=== PATIENT | female | born 1940 | race Caucasian/White ===

== ENCOUNTER 2017-02-26 06:50 | Observation (INO) | payer MEDICARE, OTHER ==
[~2017-02-26] VITALS: Ht 157.5 cm; Wt 88.5 kg
[2017-02-26] MEDS ORDERED: FENTANYL CITRATE 100 MCG/2 ML AMPUL ONE (07:40)
[2017-02-26] MEDS ORDERED: MIDAZOLAM HCL 2 MG/2 ML VIAL ONE (07:40)
[2017-02-26] MEDS ORDERED: ROCURONIUM BROMIDE 50 MG/5 ML VIAL ONE (07:41)
[2017-02-26] MEDS ORDERED: SUCCINYLCHOLINE CHLORIDE 200 MG/10 ML VIAL ONE (07:41)
[2017-02-26] MEDS ORDERED: LIDOCAINE-MPF 2% 5 ML VIAL MC ONE (08:00)
[2017-02-26] MEDS ORDERED: NEOSTIGMINE METHYLSULFATE 10 MG/10 ML VIAL IV ONE (08:00)
[2017-02-26] MEDS ORDERED: PROPOFOL 200 MG/20 ML BOTTLE IV ONE (08:00)
[2017-02-26] MEDS ORDERED: CEFAZOLIN 1 G VIAL MC ONE (08:00)
[2017-02-26] MEDS ORDERED: ONDANSETRON 4 MG/2 ML VIAL IV ONE (08:00)
[2017-02-26] MEDS ORDERED: GLYCOPYRROLATE 0.2 MG/ML VIAL MC ONE (08:00)
[2017-02-26] MEDS ORDERED: DESFLURANE ANESTHESIA GAS 240 ML BOTTLE IH ONE (08:00)
[2017-02-26] MEDS ORDERED: ETOMIDATE 20 MG/10 ML VIAL MC ONE (08:00)
[2017-02-26] MEDS ORDERED: DEXAMETHASONE SOD PHOSPHATE 4 MG INJ IV ONE (08:00)
[2017-02-26] MEDS ORDERED: IV LACTATED RINGERS SOLUTION 1,000 ML BAG MC ONE (08:00)
[2017-02-26] MEDS ORDERED: BUPIVACAINE 0.25% 30 ML VIAL ONE (08:54)
[2017-02-26] MEDS ORDERED: MORPHINE SULFATE PF 10 MG/10 ML AMPUL IV ONE (08:54)
[2017-02-26] MEDS ORDERED: TRIAMCINOLONE ACETONIDE 40 MG/1 ML VIAL ONE (09:06)
[2017-02-26] MEDS ORDERED: HYDROMORPHONE 1 MG/1 ML DISP.SYRIN ONE (09:42)
[2017-02-26] MEDS ORDERED: ONDANSETRON 4 MG/2 ML VIAL ONE (09:43)
[2017-02-26 11:17] VITALS: BP 116/61
[2017-02-26] MEDS ORDERED: PARO20TA6 PO (11:34)
[2017-02-26] MEDS ORDERED: DONE5TAB3 PO (11:34)
[2017-02-26] MEDS ORDERED: [UNRECOGNIZED DRUG - OTHER] (11:34)
[2017-02-26] MEDS ORDERED: MEGE400O PO (11:34)
[2017-02-26] MEDS ORDERED: WARF2TAB57 PO (11:34)
[2017-02-26] MEDS ORDERED: LOSA50TA3 PO (11:34)
[2017-02-26] MEDS ORDERED: FAMO-132 PO (11:34)
[2017-02-26] MEDS ORDERED: HYDR-551 PO (11:34)
[2017-02-26] MEDS ORDERED: MORPHINE SULFATE 2 MG/1 ML DISP.SYRIN IV PRN (13:30)
[2017-02-26 16:00] VITALS: BP 107/69
[2017-02-26 20:00] VITALS: BP 99/68
[2017-02-26] MEDS ORDERED: HYDROCODONE/APAP 7.5-325MG TABLET PO PRN (20:00)
[2017-02-26] MEDS ORDERED: ONDANSETRON 4 MG/2 ML VIAL IV PRN (20:30)
[2017-02-26] MEDS ORDERED: HYDROCODONE/APAP 5-325MG TABLET PO PRN (20:30)
[2017-02-26] MEDS ORDERED: ACETAMINOPHEN 325 MG TABLET PO PRN (20:30)
[2017-02-26] MEDS ORDERED: MAGNESIUM HYDROXIDE 30 ML LIQUID UDC PO PRN (20:30)
[2017-02-26] MEDS ORDERED: ZOLPIDEM 5 MG TABLET PO PRN (20:30)
[2017-02-26] MEDS ORDERED: Z GUARD REMEDY PASTE 57 GM TUBE TOP PRN (20:30)
[2017-02-27 05:00] VITALS: BP 118/75
[2017-02-27] MEDS ORDERED: MEGESTROL ACETATE 20 MG TABLET PO SCH (09:00)
[2017-02-27] MEDS ORDERED: DONEPEZIL 5 MG TABLET PO SCH (09:00)
[2017-02-27] MEDS ORDERED: FAMOTIDINE 20 MG TABLET PO SCH (09:00)
[2017-02-27] MEDS ORDERED: PAROXETINE HCL 20 MG TABLET PO SCH (09:00)
[2017-02-27] MEDS ORDERED: LOSARTAN POTASSIUM 50 MG TABLET PO SCH (09:00)
[2017-02-27 11:08] VITALS: BP 107/66
[2017-02-27 15:21] VITALS: BP 110/72
[2017-02-27] MEDS ORDERED: WARFARIN SODIUM 2 MG TABLET PO SCH (17:00)
== END 2017-02-27 15:45 ==
LOC: DS 06:50 → MED 10:36
PROVIDERS: ADMIT Orthopaedic Surgery; ATTEND Family Medicine
PROC: 0SBC4ZZ Excision of Right Knee Joint, Percutaneous Endoscopic Approach (ICD-10-PCS; principal; 2017-02-26 08:00)
DX: S83.271A Complex tear of lateral meniscus, current injury, right knee, initial encounter (principal); X58.XXXA Exposure to other specified factors, initial encounter; Y92.89 Other specified places as the place of occurrence of the external cause; E66.01 Morbid (severe) obesity due to excess calories; M17.11 Unilateral primary osteoarthritis, right knee; M65.861 Other synovitis and tenosynovitis, right lower leg; M22.41 Chondromalacia patellae, right knee; Z68.35 Body mass index [BMI] 35.0-35.9, adult; I48.0 Paroxysmal atrial fibrillation; Z79.01 Long term (current) use of anticoagulants; F03.90 Unspecified dementia, unspecified severity, without behavioral disturbance, psychotic disturbance, mood disturbance, and anxiety; E78.5 Hyperlipidemia, unspecified; K21.9 Gastro-esophageal reflux disease without esophagitis; Z79.899 Other long term (current) drug therapy; I10 Essential (primary) hypertension; F32.9 Major depressive disorder, single episode, unspecified
CPT/HCPCS: 36415; 71010; 85610; 97001; 97116; 97530; A4663; G0378; J0330; J0690; J1100; J1170; J2250; J2270; J2274; J2405; J2710; J3010; J3301; J3490; J7120

== ENCOUNTER 2017-02-27 16:01 | Inpatient (IN) | payer MEDICARE, OTHER ==
[2017-02-27 07:07] LABS: BASOPHILS % (AUTO) 0.1 % (0.0-2.0); EOSINOPHILS # (AUTO) 0.1 K/uL (0.0-0.7); EOSINOPHILS % (AUTO) 0.9 % (0.0-7.0); HEMATOCRIT 36.8 % (37-47); HEMOGLOBIN 12.3 G/DL (12.0-16.0); LYMPHOCYTES # (AUTO) 1.4 K/UL (0.8-4.8); LYMPHOCYTES % (AUTO) 16.6 % (20.5-51.5); MEAN CORPUSCULAR HEMOGLOBIN 32.6 UUG (27.0-31.0); MEAN CORPUSCULAR HGB CONC 34 g/dL (32.0-37.0); MEAN CORPUSCULAR VOLUME 97.4 FL (81.0-99.0); MONOCYTES # (AUTO) 0.4 K/UL (0.1-1.30); MONOCYTES % (AUTO) 4.6 % (0.0-11.0); NEUTROPHILS # (AUTO) 6.6 K/UL (1.8-8.9); NEUTROPHILS % (AUTO) 77.8 % (38.5-71.5); PLATELET COUNT (AUTO) 194 K/UL (150-450); RED BLOOD CELL COUNT(AUTO) 3.77 MIL/UL (4.2-5.4); WHITE BLOOD COUNT (AUTO) 8.5 K/UL (4.0-11.2)
[2017-02-27 07:47] LABS: MAGNESIUM 2.2 mg/dL (1.8-2.4); PHOSPHOROUS 3.2 mg/dL (2.5-4.9); POTASSIUM 3.9 mmol/L (3.5-5.1)
[2017-02-27 09:05] LABS: BAND % (MANUAL) 4 % (0-10); LYMPHOCYTES % (MANUAL) 20 % (20-40); MONOCYTES % (MANUAL) 3 % (2-10); NEUTROPHILS % (MANUAL) 73 % (42-75)
[~2017-02-27 16:01] MED LIST: ACETAMINOPHEN 325 MG TABLET PO PRN; DONE5TAB3 PO; DONEPEZIL 5 MG TABLET PO SCH; FAMO-132 PO; FAMOTIDINE 20 MG TABLET PO SCH; HYDR-551 PO; HYDROCODONE/APAP 5-325MG TABLET PO PRN; HYDROCODONE/APAP 7.5-325MG TABLET PO SCH; LOSA50TA3 PO; LOSARTAN POTASSIUM 50 MG TABLET PO SCH; MAGNESIUM HYDROXIDE 30 ML LIQUID UDC PO PRN; MEGE400O PO; ONDANSETRON 4 MG/2 ML VIAL IV PRN; PARO20TA6 PO; PAROXETINE HCL 20 MG TABLET PO SCH; WARF2TAB57 PO; Z GUARD REMEDY PASTE 57 GM TUBE TOP PRN; ZOLPIDEM 5 MG TABLET PO PRN; [UNRECOGNIZED DRUG - OTHER]
[2017-02-27] MEDS ORDERED: HYDROCODONE/APAP 5-325MG TABLET PO PRN (16:45)
[2017-02-27] MEDS ORDERED: Z GUARD REMEDY PASTE 57 GM TUBE TOP PRN (16:45)
[2017-02-27] MEDS ORDERED: ONDANSETRON 4 MG/2 ML VIAL IV PRN (16:45)
--- NOTE | 2017-02-27 17:00 | NUR ---
Admitted patient from 2nd floor Med-surg unit s/p knee surgery meniscus repair of right knee. Accompanied by hospital staff. Alert and oriented x4. No s/s of distress. No complaints of pain at this time. Oriented patient to room, staff and equipment. PT evaluation done. Informed Dr. Salazar of admission.
[2017-02-27] MEDS: WARFARIN SODIUM 2 MG TABLET PO SCH (17:57)
[2017-02-27 18:50] VITALS: BP 131/80
--- NOTE | 2017-02-27 19:30 | NUR ---
PT ALERT AND ORIENTED IN BED. NO DISTRESS NOTED. NO PAIN AT THIS TIME NOTED. DRESSING ON RIGHT KNEE INTACT, ELEVATED WITH PILLOW. PEDAL PULSES FELT BILATERALLY. SAFETY MAINTAINED. CALL LIGHT WITHIN REACH. WILL CONTINUE TO MONITOR.
[2017-02-27] MEDS ORDERED: MAGNESIUM HYDROXIDE 30 ML LIQUID UDC PO PRN (21:00)
[2017-02-27] MEDS ORDERED: ZOLPIDEM 5 MG TABLET PO PRN (21:00)
[2017-02-27 22:06] VITALS: BP 143/60
--- NOTE | 2017-02-28 06:46 | NUR ---
PT ALERT AND ORIENTED IN BED. NO DISTRESS NOTED. SLEPT WELL THROUGHOUT THE NIGHT. NO BM NOTED, MOM GIVEN. DRESSING INTACT. SAFETY MAINTAINED. CALL LIGHT WITHIN REACH.
--- NOTE | 2017-02-28 07:15 | NUR ---
Patient received from table games shift manager, resting comfortably in bed. No signs of acute distress noted, respirations even and unlabored. O2 sat WNL on RA, VS WNL. No other verbalized needs at this time. Safety and fall precautions maintained, call light within reach.
[2017-02-28 08:00] VITALS: BP 132/92
[2017-02-28] MEDS: DONEPEZIL 5 MG TABLET PO SCH (09:27)
[2017-02-28] MEDS: WARFARIN SODIUM 2 MG TABLET PO SCH (09:47)
[2017-02-28] MEDS: LOSARTAN POTASSIUM 50 MG TABLET PO SCH (09:49)
[2017-02-28] MEDS: FAMOTIDINE 20 MG TABLET PO SCH (09:50)
[2017-02-28] MEDS: PAROXETINE HCL 20 MG TABLET PO SCH (09:50)
[2017-02-28] MEDS: MEGESTROL ACETATE 20 MG TABLET PO SCH (09:50)
[2017-02-28] MEDS: ACETAMINOPHEN 325 MG TABLET PO PRN (16:21)
--- NOTE | 2017-02-28 16:28 | NUR ---
patient c/o 07/20 headache. Tylenol 650 mg given, will reasses.
--- NOTE | 2017-02-28 19:30 | NUR ---
Received patient awake in bed, watching TV. No s/s of distress. Call light within reach. Will continue to monitor.
[2017-02-28 20:00] VITALS: BP 126/85
--- NOTE | 2017-03-01 07:30 | NUR ---
Patient is still asleep laying in bed. No acute distress. Denies any pain and discomfort. Ambulates to bathroom with no difficulty. Kept clean and dry. All needs attended to promptly. Call light within reach. Will continue to monitor.
--- NOTE | 2017-03-01 08:00 | NUR ---
Received patient awake, sitting on the side of her bed, alert, verbally responsive, coherent, afebrile, not in any form of acute distress. She denies any pain or discomfort at this time. Environmental safety check done. Call light placed within reach.
[2017-03-01 08:23] VITALS: BP 145/92
[2017-03-01] MEDS: PAROXETINE HCL 20 MG TABLET PO SCH (08:35)
[2017-03-01] MEDS: DONEPEZIL 5 MG TABLET PO SCH (08:35)
[2017-03-01] MEDS: FAMOTIDINE 20 MG TABLET PO SCH (08:35)
[2017-03-01] MEDS: LOSARTAN POTASSIUM 50 MG TABLET PO SCH (08:36)
[2017-03-01] MEDS: MEGESTROL ACETATE 20 MG TABLET PO SCH (08:37)
[2017-03-01] MEDS: ACETAMINOPHEN 325 MG TABLET PO PRN (14:05)
[2017-03-01] MEDS ORDERED: WARFARIN SODIUM 2 MG TABLET PO SCH (17:00)
--- NOTE | 2017-03-01 19:00 | NUR ---
Received report from ANGELI Oconnor. Received patient in bed. Alert and verbally responsive. Able to make needs known. Denies any pain and discomfort at this time. No acute distress. No SOB. Patient is on room air. Sutures on right knee are intact. Dressing change to be done on Friday 03/02 as ordered. Kept clean and dry. Environmental safety check done. All needs attended to promptly. Call light within reach. Will continue to monitor.
[2017-03-01] MEDS ORDERED: WARFARIN SODIUM 3 MG TABLET PO ONE (19:45)
[2017-03-01 20:00] VITALS: BP 132/84
--- NOTE | 2017-03-02 06:27 | NUR ---
Patient is awake and verbally responsive. Slept comfortably through out the night. Denies any pain and discomfort. No acute distress. No SOB. Patient ambulates to the restroom. Tolerated well. All needs attended to promptly. Call light within reach. Will continue to monitor.
--- NOTE | 2017-03-02 07:24 | NUR ---
Dressing changed. Sutures are intact. No swelling noted. No redness. No c/o pain. No drainage. All needs attended to promptly. Call light within reach. Will contine to monitor.
--- NOTE | 2017-03-02 07:30 | NUR ---
Received patient up in bed, awake, verbally responsive, able to make needs known, not in any form of acute distress. She denies any pain or discomfort at this time. Environmental safety check done. Call light placed within reach.
[2017-03-02] MEDS: DONEPEZIL 5 MG TABLET PO SCH (09:02)
[2017-03-02] MEDS: MEGESTROL ACETATE 20 MG TABLET PO SCH (09:02)
[2017-03-02] MEDS: FAMOTIDINE 20 MG TABLET PO SCH (09:03)
[2017-03-02] MEDS: PAROXETINE HCL 20 MG TABLET PO SCH (09:03)
[2017-03-02] MEDS: LOSARTAN POTASSIUM 50 MG TABLET PO SCH (09:03)
[2017-03-02 10:31] VITALS: BP 141/101
--- NOTE | 2017-03-02 15:14 | NUR ---
Seed Tester: SW met with patient at bedside to assess needs and provide support. Per chart, pt has a hx of dementia therefore is a poor historian, and unable to provide reliable information. She appeared confused, disoriented, and disorganized upon interview. Pt reported her family lives in [place] and has no family support. She was fixated on her bandage and had to be redirected a few times. Pt was unable to report if she has ever completed a POLST or has an ACD. GIULIANO contacted pt's "daughter" who was listed as an emergency contact, Lupe [phone] who provided collateral. Per Lupe, she is not the pt's daughter and is her "long time friend". Lupe stated that the pt's family "abandoned" her years ago, and she has helped her since. Lupe reported she does not know the pt's psychiatric hx, however she has been involved in assisting and caring for the pt. Lupe stated that to her knowledge there is no POLST or ACD, and reported that family is not involved. Per Lpue, she is assisting the pt in applying for [employer]. Pt will need need mental health resources due to hx of depression and dementia, along with further community resources to plan for a safe transition home. GIULIANO will continue to follow-up and assess for further needs.
--- NOTE | 2017-03-02 16:37 | NUR ---
Relayed PT/INR results and previous coumadin dose to Dr. Harris with order to give Coumadin 5mg today. Order carried out.
[2017-03-02] MEDS ORDERED: WARFARIN SODIUM 5 MG TABLET PO ONE (17:00)
[2017-03-02] MEDS: COUMADIN VARIABLE DOSE REMINDE XX SCH (17:00)
[2017-03-02] MEDS ORDERED: WARFARIN SODIUM 3 MG TABLET PO ONE (17:00)
[2017-03-02 20:00] VITALS: BP 109/57
--- NOTE | 2017-03-03 05:18 | NUR ---
Patient alert and oriented verbally able to let needs known. Slept well throughout the night. Had no complains of pain or discomfort, no signs of respiratory distress noted. Patient has call light within reach, will continue to monitor.
--- NOTE | 2017-03-03 07:30 | NUR ---
RECEIVED PATIENT IN BED AWAKE ALERT AND ORIENTED,DENIES PAIN OR DISCOMFORTS AT THIS TIME.CALL LIGHT IS WITHIN EASY REACH AT THIS TIME.MADE COMFORTABLE AND WILL CONTINUE TO OBSERVE.
[2017-03-03 08:00] VITALS: BP 130/98
[2017-03-03] MEDS: PAROXETINE HCL 20 MG TABLET PO SCH (09:34)
[2017-03-03] MEDS: LOSARTAN POTASSIUM 50 MG TABLET PO SCH (09:34)
[2017-03-03] MEDS: DONEPEZIL 5 MG TABLET PO SCH (09:34)
[2017-03-03] MEDS: MEGESTROL ACETATE 20 MG TABLET PO SCH (09:34)
[2017-03-03] MEDS: FAMOTIDINE 20 MG TABLET PO SCH (09:34)
--- NOTE | 2017-03-03 13:57 | NUR ---
IDT MEETING 03/03/17
--- NOTE | 2017-03-03 15:17 | NUR ---
PATIENT SEEN AND EXAMINED BY DR OMER SECURITY NURSE WITH NEW ORDERS AND NOTED.
[2017-03-03 16:11] VITALS: BP 144/109
[2017-03-03 16:30] VITALS: BP 140/93
[2017-03-03] MEDS: COUMADIN VARIABLE DOSE REMINDE XX SCH (17:00)
[2017-03-03] MEDS: RIVAROXABAN 10 MG TABLET PO SCH (17:40)
--- NOTE | 2017-03-03 18:15 | NUR ---
XARELTO GIVEN ORDERED WITH NO ADVERSE OR ALLERGIC REACTIONS AT THIS TIME.
[2017-03-03 19:58] VITALS: BP 142/90
--- NOTE | 2017-03-03 20:33 | NUR ---
Patient alert me during 2000 rounds that as she was ambulating to the restroom she felt something pop on her R knee and it suddenly swelled around the suture site. Patient is S/P R knee arthroplasty, site was assessed and it was noted with some swelling around sutures with slight warmness. Dr Mistry was telephone collector for the epic group and she was notified. She stated to have PT evaluate the knee tomorrow. Patient is alert and oriented and informed on what was recommended by the doctor. Knee will be continued to monitor throughout the night.
--- NOTE | 2017-03-04 05:29 | NUR ---
Patient alert and oriented and verbally able to let needs known, patient slept well throughout the night. She had no complains of pain or discomfort, no signs of respiratory distress. Patient has call light within reach, all needs attended.
--- NOTE | 2017-03-04 07:05 | NUR ---
Patient received from communications instructor, resting comfortably in bed. No signs of acute distress noted, respirations even and unlabored. VS WNL, no complaints of pain, no other verbalized needs at this time. Safety precautions and fall precautions maintained, call light within reach.
[2017-03-04 08:00] VITALS: BP 136/105
[2017-03-04] MEDS: DONEPEZIL 5 MG TABLET PO SCH (08:49)
[2017-03-04] MEDS: LOSARTAN POTASSIUM 50 MG TABLET PO SCH (08:50)
[2017-03-04] MEDS: PAROXETINE HCL 20 MG TABLET PO SCH (08:50)
[2017-03-04] MEDS: FAMOTIDINE 20 MG TABLET PO SCH (08:50)
[2017-03-04] MEDS: MEGESTROL ACETATE 20 MG TABLET PO SCH (09:53)
--- NOTE | 2017-03-04 14:01 | NUR ---
PATIENT IS COMMING BACK FROM PT VIA WHEEL CHAIR.
--- NOTE | 2017-03-04 15:28 | NUR ---
PATIENT IS RESTING IN BED AT THIS TIME.
[2017-03-04] MEDS: RIVAROXABAN 10 MG TABLET PO SCH (17:07)
--- NOTE | 2017-03-04 19:30 | NUR ---
Received report from Kale Mathis RN. Received patient laying in bed. Alert and verbally responsive. Able to make needs known. Denies any pain and discomfort at this time. No acute distress. No SOB. Sutures on right knee are in tact. No s/s of redness or bleeding. Kept clean and dry. All needs attended to promptly. Call light within reach. Will continue to monitor.
[2017-03-04 20:03] VITALS: BP 137/71
--- NOTE | 2017-03-05 07:05 | NUR ---
Patient received from blueprinter, resting comfortably in bed. All endorsements received and verified. No signs of acute distress noted, respirations even and unlabored. VS WNL, no complaints of pain at this time. No other verbalized needs by patient at this time, safety and fall precautions maintained. Call light within reach.
--- NOTE | 2017-03-05 07:05 | NUR ---
Patient awake and verbally responsive. Able to make needs known. No c/o pain and discomfort. No acute distress. No SOB. Sutures on right knee intact. No redness. No bleeding. All needs attended to promptly. Call light within reach. Will continue to monitor.
[2017-03-05 08:00] VITALS: BP 121/63
[2017-03-05] MEDS: DONEPEZIL 5 MG TABLET PO SCH (09:47)
[2017-03-05] MEDS: PAROXETINE HCL 20 MG TABLET PO SCH (09:48)
[2017-03-05] MEDS: MEGESTROL ACETATE 20 MG TABLET PO SCH (09:48)
[2017-03-05] MEDS: LOSARTAN POTASSIUM 50 MG TABLET PO SCH (09:48)
[2017-03-05] MEDS: FAMOTIDINE 20 MG TABLET PO SCH (09:48)
--- NOTE | 2017-03-05 19:15 | NUR ---
nsg: pt received in bed, awake, alert. no acute distress noted. denies discomfort. no c/o pain. ambulatory.
[2017-03-05 20:23] VITALS: BP 145/93
[2017-03-05] MEDS: RIVAROXABAN 10 MG TABLET PO SCH (20:36)
--- NOTE | 2017-03-06 05:17 | NUR ---
nsg: no change in condition. denies discomfort.
--- NOTE | 2017-03-06 08:00 | NUR ---
RECEIVED PATIENT AWAKE, ALERT AND ORIENTED. NO COMPLAINTS OF PAIN AT THIS TIME. NO S/S OF DISTRESS. TOLERATED MEDICATIONS AND DIET WELL. CALL LIGHT WITHIN REACH. ENSURED SAFETY. WILL CONTINUE TO MONITOR.
[2017-03-06] MEDS: DONEPEZIL 5 MG TABLET PO SCH (08:59)
[2017-03-06] MEDS: FAMOTIDINE 20 MG TABLET PO SCH (09:00)
[2017-03-06] MEDS: PAROXETINE HCL 20 MG TABLET PO SCH (09:00)
[2017-03-06] MEDS: MEGESTROL ACETATE 20 MG TABLET PO SCH (09:00)
[2017-03-06] MEDS: LOSARTAN POTASSIUM 50 MG TABLET PO SCH (09:00)
--- NOTE | 2017-03-06 10:00 | NUR ---
PATIENT COMPLAINED OF DYSURIA. INFORMED DR. HOPKINS, URINE, C&S ORDERED.
[2017-03-06 10:58] LABS: *BILIRUBIN,URIN NEGATIVE (NEGATIVE); *BLOOD, URINE 2+ (NEGATIVE); *CLARITY,URINE CLOUDY (CLEAR); *COLOR,URINE YELLOW (YELLOW); *KETONES,URINE NEGATIVE (NEGATIVE); *PROTEIN,URINE NEGATIVE (NEGATIVE); LEUKOCYTE ESTERASE ,URINE 3+ (NEGATIVE); NITRITE, URINE NEGATIVE (NEGATIVE); UGLUCOSE NEGATIVE (NEGATIVE)
[2017-03-06 11:08] LABS: BACTERIA,URINE MODERATE /HPF (NONE SEEN); SQUAMOUS EPITHELIAL CELL,UR FEW /HPF (NONE SEEN); WBC,URINE TNTC /HPF (0-3)
[2017-03-06 15:28] VITALS: BP 152/93
--- NOTE | 2017-03-06 16:00 | NUR ---
PATIENT URINALYSIS SHOWS UTI. DR HOPKINS ORDERED CEFTRIAXONE 1GM DAILY FOR 7 DAYS, STARTED. NO S/S OF ADVERSE REACTIONS NOTED. TOLERATED PHYSICAL THERAPY. NO COMPLAINTS OF DISCOMFORT AT THIS TIME.
[2017-03-06] MEDS: CEFTRIAXONE 1 G in IV DEXTROSE 5% 50 ML IV SCH (16:39)
[2017-03-06] MEDS: RIVAROXABAN 10 MG TABLET PO SCH (17:44)
--- NOTE | 2017-03-06 19:30 | NUR ---
PT ALERT AND ORIENTED IN BED. NO DISTRESS NOTED. IV INTACT. NO PAIN NOTED AT THIS TIME. SAFETY MAINTAINED. CALL LIGHT WITHIN REACH. WILL CONTINUE TO MONITOR.
[2017-03-06 20:00] VITALS: BP 118/83
--- NOTE | 2017-03-07 07:06 | NUR ---
PT RESTING IN BED. NO DISTRESS NOTED. NO CHANGES THROUGHOUT THE NIGHT. IV INTACT. NO COMPLAINTS OF PAIN AT THIS TIME. SAFETY MAINTAINED. CALL LIGHT WITHIN REACH.
--- NOTE | 2017-03-07 08:51 | NUR ---
RECEIVED PATIENT AWAKE IN BED. NO S/S OF DISTRESS. NO COMPLAINTS OF PAIN OR DISCOMFORT. IV INTACT AND PATENT OVER RIGHT WRIST, FLUSHED WITH NSS. WILL CONTINUE TO MONITOR.
[2017-03-07] MEDS: FAMOTIDINE 20 MG TABLET PO SCH (09:06)
[2017-03-07] MEDS: LOSARTAN POTASSIUM 50 MG TABLET PO SCH (09:06)
[2017-03-07] MEDS: PAROXETINE HCL 20 MG TABLET PO SCH (09:07)
[2017-03-07] MEDS: MEGESTROL ACETATE 20 MG TABLET PO SCH (09:07)
[2017-03-07] MEDS: DONEPEZIL 5 MG TABLET PO SCH (09:07)
[2017-03-07] MEDS: CEFTRIAXONE 1 G in IV DEXTROSE 5% 50 ML IV SCH (09:39)
--- NOTE | 2017-03-07 16:44 | NUR ---
FLUSHED IV SITE ACCORDINGLY. SUPERVISED AMBULATION. NO COMPLAINTS OF DYSURIA AT THE MOMENT. PATIENT RESTING COMFORTABLY IN BED.
[2017-03-07] MEDS: RIVAROXABAN 10 MG TABLET PO SCH (17:41)
[2017-03-07 20:35] VITALS: BP 136/84
--- NOTE | 2017-03-08 05:10 | NUR ---
Patient alert and oriented and verbally able to let needs known, patient slept well and had no complains of pain or discomfort. IV site on R wrist intact and flushing well. Patient does have call light within reach, will continue to monitor.
--- NOTE | 2017-03-08 07:07 | NUR ---
Patient received from night nurse, resting comfortably in bed. No signs of acute distress noted, respirations even and unlabored. VS WNL. No verbalized needs at this time. Surgical incision to right knee, clean and dry, no signs of redness or swelling. Patient to go to therapy with OT now. Safety and fall precautions maintained.
[2017-03-08 07:15] VITALS: BP 131/88
[2017-03-08] MEDS: CEFTRIAXONE 1 G in IV DEXTROSE 5% 50 ML IV SCH (08:31)
[2017-03-08] MEDS: MEGESTROL ACETATE 20 MG TABLET PO SCH (08:32)
[2017-03-08] MEDS: FAMOTIDINE 20 MG TABLET PO SCH (08:32)
[2017-03-08] MEDS: DONEPEZIL 5 MG TABLET PO SCH (08:32)
[2017-03-08] MEDS: PAROXETINE HCL 20 MG TABLET PO SCH (08:32)
[2017-03-08] MEDS: LOSARTAN POTASSIUM 50 MG TABLET PO SCH (08:34)
[2017-03-08] MEDS: RIVAROXABAN 10 MG TABLET PO SCH (18:25)
[2017-03-08 20:08] VITALS: BP 132/49
--- NOTE | 2017-03-08 21:43 | NUR ---
Received patient sitting on her bed with no s/s of distress. No complaints of pain. Call light within reach. Will continue to monitor.
[2017-03-09 08:00] VITALS: BP 137/94
--- NOTE | 2017-03-09 08:05 | NUR ---
Patient resting on her bed with no s/s of distress. Call light kept within reach. Needs attended. Kept comfortable. Safety measures observed. Frequent checks done throughout shift. Endorsed accordingly.
[2017-03-09] MEDS: MEGESTROL ACETATE 20 MG TABLET PO SCH (08:23)
[2017-03-09] MEDS: PAROXETINE HCL 20 MG TABLET PO SCH (08:23)
[2017-03-09] MEDS: DONEPEZIL 5 MG TABLET PO SCH (08:23)
[2017-03-09] MEDS: LOSARTAN POTASSIUM 50 MG TABLET PO SCH (08:23)
[2017-03-09] MEDS: FAMOTIDINE 20 MG TABLET PO SCH (08:23)
[2017-03-09] MEDS: LEVOFLOXACIN 500 MG TABLET PO SCH (08:23)
[2017-03-09] MEDS: RIVAROXABAN 10 MG TABLET PO SCH (18:20)
--- NOTE | 2017-03-09 18:49 | NUR ---
pt able to participate in OT PT eval. pt was thought to be discharged today but it was prolonged until tomorrow. no signs of acute distress in shift.
[2017-03-09 20:00] VITALS: BP 132/85
--- NOTE | 2017-03-09 20:00 | NUR ---
RECEIVED PATIENT AWAKE IN BED. A/O X 4. POLISH SPEAKING. ABLE TO MAKE VERY SIMPLE NEEDS KNOWN, OTHERWISE TRANSLATION IS NEEDED. VSS. PATIENT DENIES ANY PAIN OR DISCOMFORT. NO RESP. DISTRESS NOTED. VSS. CALL LIGHT IN REACH. ALL NEEDS ATTENDED. WILL CONTINUE TO MONITOR.
--- NOTE | 2017-03-10 06:30 | NUR ---
PATIENT ASLEEP IN BED. EASILY AROUSABLE. SLEPT WELL THROUGHOUT THE NIGHT. ALL NEEDS ATTENDED. CALL LIGHT IN REACH.
[2017-03-10 08:00] VITALS: BP 133/82
[2017-03-10 08:04] VITALS: BP 133/82
[2017-03-10] MEDS: LOSARTAN POTASSIUM 50 MG TABLET PO SCH (08:04)
[2017-03-10] MEDS: LEVOFLOXACIN 500 MG TABLET PO SCH (08:04)
[2017-03-10] MEDS: DONEPEZIL 5 MG TABLET PO SCH (08:04)
[2017-03-10] MEDS: FAMOTIDINE 20 MG TABLET PO SCH (08:05)
[2017-03-10] MEDS: PAROXETINE HCL 20 MG TABLET PO SCH (08:05)
[2017-03-10] MEDS: MEGESTROL ACETATE 20 MG TABLET PO SCH (08:05)
[2017-03-10] MEDS ORDERED: RIVA10TA PO (10:24)
[2017-03-10] MEDS ORDERED: LEVO500T15 PO (10:24)
== END 2017-03-10 15:16 | disposition home health service (06) | DRG 949 ==
PROVIDERS: ADMIT Physical Medicine & Rehabilitation Pain Medicine; ATTEND Physical Medicine & Rehabilitation Pain Medicine
DX: S83.271D Complex tear of lateral meniscus, current injury, right knee, subsequent encounter (principal); N39.0 Urinary tract infection, site not specified; S83.231D Complex tear of medial meniscus, current injury, right knee, subsequent encounter; X58.XXXD Exposure to other specified factors, subsequent encounter; Z98.890 Other specified postprocedural states; I10 Essential (primary) hypertension; M17.11 Unilateral primary osteoarthritis, right knee; F03.90 Unspecified dementia, unspecified severity, without behavioral disturbance, psychotic disturbance, mood disturbance, and anxiety; F32.9 Major depressive disorder, single episode, unspecified; K21.9 Gastro-esophageal reflux disease without esophagitis; Z90.49 Acquired absence of other specified parts of digestive tract; I48.0 Paroxysmal atrial fibrillation; R79.89 Other specified abnormal findings of blood chemistry
CPT/HCPCS: 36415; 71010; 83735; 84100; 85025; 85610; 87077; 87086; 97110; 97112; 97116; 97161; 97530; 97535; A4663; G0378; J0330; J0690; J0696; J1100; J1170; J2250; J2270; J2274; J2405; J2710; J3010; J3301; J3490; J7060; J7120